=== PATIENT | male | born 1950 ===

== ENCOUNTER 2016-12-13 11:11 | Observation (INO) | payer MEDICARE ==
[2016-12-13 11:11] VITALS: BMI 28.3
[2016-12-13] MEDS ORDERED: Sodium Chloride 0.9% 500 ML IV STA (11:48)
--- NOTE | 2016-12-13 12:03 | ED PDOC ---
HPI: Chest Pain Time Seen by Provider: 12/13/16 11:25 Chief Complaint (Nursing): Chest Pain Chief Complaint (Provider): Chest pain History Per: Patient History/Exam Limitations: no limitations Onset/Duration Of Symptoms: Days (Today) Current Symptoms Are (Timing): Still Present Additional Complaint(s): Pt. was getting pre-op for colonoscopy today. He started get chest pain so sent to the ER. Pt. currently with mild left side pain. No numbness, tingles, weakness, headaches, dizziness, fever, cough. No dyspnea. Past Medical History Reviewed: Nursing Documentation, Vital Signs Vital Signs: Last Vital Signs Temp 98 F 12/13/16 11:13 Pulse 56 L 12/13/16 11:13 Resp 18 12/13/16 11:13 BP 150/84 12/13/16 11:13 Pulse Ox 97 12/13/16 12:49 - Medical History PMH: Diabetes, HTN, Hypercholesterolemia, Hypothyroidism Denies: Chronic Kidney Disease - Surgical History Surgical History: CABG, Endoscopy - Family History Family History: States: Unknown Family Hx - Living Arrangements Living Arrangements: With Family - Social History Current smoker - smoking cessation education provided: No Alcohol: None Drugs: Denies - Immunization History Hx Tetanus Toxoid Vaccination: No Hx Influenza Vaccination: No Hx Pneumococcal Vaccination: No - Home Medications Home Medications: Ambulatory Orders Medication Instructions Recorded Unobtainable 12/13/16 - Allergies Allergies/Adverse Reactions: Allergies Allergy/AdvReac Type Severity Reaction Status Date / Time No Known Allergies Allergy Verified 12/13/16 11:13 CLAIRE Risk Score for UA/NSTEMI - CLAIRE Risk Score Age > 64: YES 3 or more CAD Risk Factors: YES Known CAD (Stenosis greater than 50%): NO Aspirin use in past 7 days: YES Severe Angina: NO EKG ST changes greater than 0.5mm: NO Positive Cardiac Marker: NO CLAIRE Score: 3 Risk %: 13% Review of Systems ROS Statement: Except As Marked, All Systems Reviewed And Found Negative Cardiovascular: Positive for: Chest Pain Physical Exam - Reviewed Nursing Documentation Reviewed: Yes Vital Signs Reviewed: Yes - Physical Exam Appears: Positive for: Non-toxic, No Acute Distress Head Exam: Positive for: ATRAUMATIC, NORMAL INSPECTION, NORMOCEPHALIC Skin: Positive for: Normal Color, Warm, DRY Eye Exam: Positive for: EOMI, Normal appearance, PERRL ENT: Positive for: Normal ENT Inspection Neck: Positive for: Normal, Painless ROM Cardiovascular/Chest: Positive for: Regular Rate, Rhythm. Negative for: Chest Non Tender (mild left side), Edema Respiratory: Positive for: Normal Breath Sounds. Negative for: Decreased Breath Sounds, Accessory Muscle Use, Wheezing Gastrointestinal/Abdominal: Positive for: Normal Exam, Bowel Sounds, Soft. Negative for: Tenderness Back: Positive for: Normal Inspection. Negative for: L CVA Tenderness, R CVA Tenderness Extremity: Positive for: Normal ROM. Negative for: Tenderness, Pedal Edema, Calf Tenderness Neurologic/Psych: Positive for: Alert, Oriented - Laboratory Results Result Diagrams: 12/13/16 11:50 12/13/16 11:50 Interpretation Of Abn Labs: no acute - ECG ECG: Positive for: Interpreted By Me, Viewed By Me ECG Rhythm: Positive for: Sinus Rhythm, Nonspecific Changes Interpretation Of Abn EKG: similar to old O2 Sat by Pulse Oximetry: 97 Pulse Ox Interpretation: Normal - Radiology X-Ray: Read By Radiologist X-Ray Interpretation: No Acute Disease - Progress ED Course And Treament: 1411: Stable. AAOx3. Will need admit for further eval. Spoke with hospitalist who will admit Dr. Stewart pt. Spoke with Dr. Felton, will consult. Well known to him. Pt. is pain free currently. Disposition - Clinical Impression Clinical Impression: Chest pain - Patient ED Disposition Is Patient to be Admitted: Yes Counseled Patient/Family Regarding: Studies Performed, Diagnosis - Disposition Disposition Time: 14:18 Condition: FAIR - Pt Status Changed To: Hospital Disposition Of: Observation - POA Present On Arrival: None Core Measure Indicators: Chest Pain
--- NOTE | 2016-12-13 12:33 | RAD ---
HISTORY: chest pain COMPARISON: Portable chest 09/02/2013. FINDINGS: LUNGS: No active pulmonary disease. PLEURA: No significant pleural effusion identified, no pneumothorax apparent. CARDIOVASCULAR: Cardiomegaly is stable. No pulmonary vascular derangement. Trachea remains midline. OSSEOUS STRUCTURES: Median sternotomy again identified. Prior right chest port now removed. VISUALIZED UPPER ABDOMEN: Normal. OTHER FINDINGS: None. IMPRESSION: Stable cardiomegaly. No infiltrate pleural effusion or pneumothorax. No pulmonary vascular derangement identified. Prior right chest port now removed.
[2016-12-13 12:55] LABS: BASO % 0.5 % (0.0-2.0); EOS # 0.2 K/uL (0.0-0.7); EOS % 2.9 % (0.0-4.0); HEMATOCRIT 47.1 % (35.0-51.0); LYMPH # 1.5 K/uL (1.0-4.3); LYMPH % 27.1 % (20.0-40.0); MEAN CORPUSCULAR HEMOGLOBIN 30.1 pg (27.0-31.0); MEAN CORPUSCULAR HGB CONC 32.3 g/dL (33.0-37.0); MONO # 0.6 K/uL (0.0-0.8); MONO % 11.5 % (0.0-10.0); NEUT # 3.3 K/uL (1.8-7.0); NRBC % 0.1 % (0.0-0.0); RED CELL DISTRIBUTION WIDTH 14.4 % (11.5-14.5); WHITE BLOOD COUNT 5.6 K/uL (4.8-10.8)
[2016-12-13 13:06] LABS: ALB/GLOB RATIO 1.4 (1.0-2.1); ALKALINE PHOSPHATASE 67 U/L (38-126); ALT/SGPT 42 U/L (21-72); AST/SGOT 28 U/L (17-59); BILIRUBIN,TOTAL 1.1 mg/dl (0.2-1.3); BLOOD UREA NITROGEN 22 mg/dl (9-20); CALCIUM 9.7 mg/dL (8.4-10.2); CARBON DIOXIDE 30 mmol/L (22-30); CHLORIDE 104 mmol/L (98-107); GFR AFRICAN-AMERICAN > 60; GLUCOSE,RANDOM 139 mg/dL (75-110); SODIUM 145 mmol/l (132-148); TOTAL PROTEIN 7.5 G/DL (6.3-8.2)
[2016-12-13 13:18] LABS: PARTIAL THROMBOPLASTIN TIME 31.6 Seconds (25.6-37.1)
[2016-12-13] MEDS ORDERED: LINACLOTIDE 72 MG PO PRN (15:53)
[2016-12-13] MEDS ORDERED: Insulin Lispro (humaLOG) 100 Units/ml Inj SC SCH (16:30)
--- NOTE | 2016-12-13 17:14 | CP.PCM.HP ---
History of Present Illness - History of Present Illness History of Present Illness: CC: chest pain Code status: Full code Surrogate decision maker: Alvarez Keyes, brother This is a 66-year-old male with a past medical history significant for coronary artery disease status post quadruple CABG, type 2 diabetes mellitus, hypertension, hypercholesterolemia, hypothyroidism, presents to the emergency department with the complaint of chest pain. The patient relates that he was to have a colonoscopy today when he began having chest pain. He says that the pain is mild to moderate, substernal, nonradiating, feels like a sharp pain, nonreproducible, not associated with exertion. He says that the pain improved after eructation. In the ED, the patient's vitals were stable and he was chest pain free. EKG shows sinus bradycardia with no acute changes. CXR shows no acute cardiopulmonary disease. Labwork, including troponin, was benign. The patient is to be placed on observation overnight on telemetry with cardiology consultation to evaluate for the possiblity of acute coronary syndome. Patient denies shortness of breath, fevers, chills, nausea, vomiting, diarrhea, headache. Rest of ROS as below. All of the patient's and/or family's questions were answered at the bedside. Present on Admission - Present on Admission Any Indicators Present on Admission: No Review of Systems - Constitutional Constitutional: absent: Anorexia, Chills, Frequent Falls, Headache - EENT Eyes: absent: Diplopia, Discharge, Dry Eye, Exophthalmos, Itchy Eyes, Loss of Peripheral Vision, Requires Corrective Lenses, Sees Flashes Ears: absent: Decreased Hearing, Ear Discharge, Ear Pain, Tinnitus, Disequilibrium, Dizziness - Cardiovascular Cardiovascular: Chest Pain. absent: Dyspnea on Exertion, Edema, Irregular Heart Rhythm, Leg Edema, Palpitations, Rapid Heart Rate - Respiratory Respiratory: absent: Cough, Dyspnea on Exertion, Wheezing, Snoring, Pain on Inspiration - Gastrointestinal Gastrointestinal: absent: Change in Stool Character, Cramping, Dyspepsia, Fecal Incontinence, Hematochezia - Musculoskeletal Musculoskeletal: absent: Arthralgias, Deformity, Joint Swelling, Limited Range of Motion, Loss of Height, Muscle Weakness, Myalgias, Neck Pain - Integumentary Integumentary: absent: Change in Hair, Changing Lesions, Dry Skin, Hirsutism, Lesions, New Lesions, Skin Pain - Neurological Neurological: absent: Abnormal Gait, Disequilibrium, Dizziness, Numbness, Frequent Falls, Headaches, Paresthesias, Radicular Pain - Psychiatric Psychiatric: absent: Abnormal Sleep Pattern, Behavioral Changes, Change in Appetite, Confusion, Depression, Difficulty Concentrating - Endocrine Endocrine: absent: Change in Libido, Deepening of Voice, Excessive Sweating, Heat Intolorance, Increase in Ring/Shoe/Hat Size - Hematologic/Lymphatic Hematologic: absent: Easy Bleeding, Easy Bruising, Lymphadenopathy Past Patient History - Past Medical History & Family History Past Medical History?: Yes - Past Social History Smoking Status: Never Smoked - CARDIAC Hx Cardiac Disorders: Yes - PULMONARY Hx Respiratory Disorders: No - NEUROLOGICAL Hx Neurological Disorder: No - HEENT Hx HEENT Problems: No - RENAL Hx Chronic Kidney Disease: No - ENDOCRINE/METABOLIC Hx Endocrine Disorders: Yes - HEMATOLOGICAL/ONCOLOGICAL Hx Blood Disorders: Yes Hx Cancer: Yes (COLON CA WITH CHEMO) - INTEGUMENTARY Hx Dermatological Problems: No - MUSCULOSKELETAL/RHEUMATOLOGICAL Hx Musculoskeletal Disorders: No Hx Falls: No - GASTROINTESTINAL Hx Gastrointestinal Disorders: No - GENITOURINARY/GYNECOLOGICAL Hx Genitourinary Disorders: No - PSYCHIATRIC Hx Psychophysiologic Disorder: No Hx Emotional Abuse: No Hx Physical Abuse: No Hx Substance Use: No - SURGICAL HISTORY Hx Coronary Artery Bypass Graft: Yes - ANESTHESIA Hx Anesthesia: Yes Hx Anesthesia Reactions: No Hx Malignant Hyperthermia: No Meds Allergies/Adverse Reactions: Allergies Allergy/AdvReac Type Severity Reaction Status Date / Time No Known Allergies Allergy Verified 12/13/16 11:13 Physical Exam - Additional Findings Additional findings: EXAM: Vitals stable and reviewed GEN: WDWN, alert, cooperative HEENT: NCAT, PERRL, EOMI Neck: supple, no lymphadenopathy CARDIO: +S1S2, bradycardia, regular rhythm, NO M/R/G LUNG: CTAB, NO W/R/R ABD: soft, NT, ND, no masses, no HSM EXT: no edema, pedal pulses Neuro: AAOx3, Strength equal, bilateral UE/LE Psych: normal mood, normal affect Results - Vital Signs Recent Vital Signs: Last Vital Signs Temp 97.5 F L 12/13/16 16:04 Pulse 53 L 12/13/16 16:59 Resp 18 12/13/16 16:12 BP 126/70 12/13/16 16:59 Pulse Ox 97 12/13/16 16:04 - Labs Result Diagrams: 12/13/16 11:50 12/13/16 11:50 - Impressions Impression: EKG shows sinus bradycardia at 57 bpm, nonspecific T wave changes in lateral leads, left axis deviation. No acute ST changes. Assessment & Plan - Assessment and Plan (Free Text) Plan: - CLAIRE Risk Score Age > 64: YES 3 or more CAD Risk Factors: YES Known CAD (Stenosis greater than 50%): NO Aspirin use in past 7 days: YES Severe Angina: NO EKG ST changes greater than 0.5mm: NO Positive Cardiac Marker: NO CLAIRE Score: 3 Risk %: 13% Chest pain, with hx of significant cardiac history. ddx: ACS, GERD symptoms, esophageal spasm, anxiety, - Place on telemetry observation - Cardiology consult with Dr. lindsey appreciated - Cycle troponins, first negative - EKG in AM and with chest pain - ASA 81 mg po daily, 325 mg given in ED - Continue Coreg 3.125 mg po q 12 hours - Nitrostat PRN for chest pain Hypertension - Continue Lisinopril - Coreg as above Type 2 DM - Restart home insulin regimen - Accuchecks Hypothyroidism - continue synthroid DVT prophylaxis - Lovenox 40 mg SC daily - Date & Time Date: 12/13/16 Time: 17:30
[2016-12-13] MEDS ORDERED: Insulin Detemir 100 Units/ml Inj SC SCH (22:00)
[2016-12-13] MEDS: Insulin Regular 100 units/ml SC SCH (22:29)
[2016-12-14 00:06] VITALS: RESP 18
[2016-12-14] MEDS: Insulin Regular 100 units/ml SC SCH (06:15)
[2016-12-14] MEDS ORDERED: Levothyroxine 150 MCG TAB PO SCH (06:30)
--- NOTE | 2016-12-14 07:59 | CARD ---
APPROVED REPORT EKG Measurement Heart [id number] IA [id number] [id number] <Conclusion> Sinus bradycardia Left axis deviation Nonspecific intraventricular conduction delay ST & T wave abnormality, consider lateral ischemia Abnormal ECG
[2016-12-14 08:12] VITALS: BP 124/75; TEMP 97.8; O2SAT 95
--- NOTE | 2016-12-14 08:42 | CARD ---
APPROVED REPORT EKG Measurement Heart [id number] NM [id number] [id number] <Conclusion> Sinus bradycardia Left axis deviation T wave abnormality, consider lateral ischemia Abnormal ECG
[2016-12-14] MEDS ORDERED: Pravastatin Sodium 40 MG TAB PO SCH (09:00)
[2016-12-14] MEDS ORDERED: Enoxaparin 40 mg Syringe SC SCH (09:00)
[2016-12-14 10:00] VITALS: PULSE 61
--- NOTE | 2016-12-14 10:44 | CP.PCM.CON ---
History of Present Illness - History of Present Illness History of Present Illness: THE PATIENT IS A 66 YEAR OLD MALE WHO WAS ADMITTED TO [facility] YESTERDAY UNDER OBSERVATION FOR CHEST PAIN. HE HAS A HISTORY OF CAD WITH AN OLD VA AND CABGS, HYPERTENSION, HYPERLIPIDEMIA, COLON CA SURGERY, DM, AND HYPOTHYROIDISM. HE WAS SCHEDULED FOR A COLONOSCOPY YESTERDAY AND WAS RECEIVING A COLONOSCOPY PREPARATION AND HAD CHEST PAIN AND THE COLONOSCOPY WAS CANCELLED AND THE PATIENT WAS SENT THE ER AND ADMITTED. HE DESCRIBED THE CHEST PAIN "GAS" PAIN THAT HE BELIEVES WAS FROM HIS GI PREP. THE PAIN WAS IN THE CENTER OF THE CHEST AND THE LEFT SIDE OF THE CHEST AND LASTED FOR ABOUT 30 MINUTES IN TOTAL AND WENT AWAY WHEN HE PASSED FLATUS. HE HAS BEEN CHEST PAIN FREE SINCE. HE DENIES PALPITATIONS OR SOB. Past Patient History - Past Medical History & Family History Past Medical History?: Yes - Past Social History Smoking Status: Never Smoked - CARDIAC Hx Cardiac Disorders: Yes - PULMONARY Hx Respiratory Disorders: No - NEUROLOGICAL Hx Neurological Disorder: No - HEENT Hx HEENT Problems: No - RENAL Hx Chronic Kidney Disease: No - ENDOCRINE/METABOLIC Hx Endocrine Disorders: Yes - HEMATOLOGICAL/ONCOLOGICAL Hx Blood Disorders: Yes Hx Cancer: Yes (COLON CA WITH CHEMO) - INTEGUMENTARY Hx Dermatological Problems: No - MUSCULOSKELETAL/RHEUMATOLOGICAL Hx Musculoskeletal Disorders: No Hx Falls: No - GASTROINTESTINAL Hx Gastrointestinal Disorders: No - GENITOURINARY/GYNECOLOGICAL Hx Genitourinary Disorders: No - PSYCHIATRIC Hx Psychophysiologic Disorder: No Hx Emotional Abuse: No Hx Physical Abuse: No Hx Substance Use: No - SURGICAL HISTORY Hx Coronary Artery Bypass Graft: Yes - ANESTHESIA Hx Anesthesia: Yes Hx Anesthesia Reactions: No Hx Malignant Hyperthermia: No Meds Allergies/Adverse Reactions: Allergies Allergy/AdvReac Type Severity Reaction Status Date / Time No Known Allergies Allergy Verified 12/13/16 11:13 - Medications Medications: Current Medications Alprazolam (Xanax) 0.5 mg PO HS [facility] Last Admin: 12/13/16 22:26 Dose: 0.5 mg Aspirin (Ecotrin) 81 mg PO DAILY [facility] Last Admin: 12/14/16 08:43 Dose: 81 mg Carvedilol (Coreg) 3.125 mg PO Q12H [facility] Last Admin: 12/14/16 05:30 Dose: Not Given Enoxaparin Sodium (Lovenox) 40 mg SC DAILY [facility] PRN Reason: Protocol Last Admin: 12/14/16 08:43 Dose: 40 mg Home Med (Icosapent Ethyl [Vascepa]) 2 gm PO BID [facility] Home Med (Linaclotide [Linzess]) 72 mg PO DAILY PRN PRN Reason: Constipation Insulin Detemir (Levemir) 30 units SC [facility] Last Admin: 12/13/16 22:27 Dose: 30 units Insulin Human Regular (Humulin R) 0 units SC ACCU-CHECK [facility] PRN Reason: Protocol Last Admin: 12/14/16 06:15 Dose: Not Given Levothyroxine Sodium (Synthroid) 150 mcg PO DAILY@0630 [facility] Last Admin: 12/14/16 06:14 Dose: 150 mcg Lisinopril (Zestril) 5 mg PO DAILY [facility] Last Admin: 12/14/16 08:43 Dose: 5 mg Nitroglycerin (Nitrostat Sl Tab) 0.4 mg SL Q5M PRN PRN Reason: Pain, moderate (4-7) Pravastatin Sodium (Pravachol) 40 mg PO DAILY [facility] Last Admin: 12/14/16 08:43 Dose: 40 mg Physical Exam - Respiratory Exam Respiratory Exam: Clear to Auscultation Bilateral - Cardiovascular Exam Cardiovascular Exam: REGULAR RHYTHM, +S1, +S2 - Extremities Exam Extremities exam: Positive for: normal inspection - Additional Findings Additional findings: EKG SINUS RHYTHM, T WAVE INVERSIONS IN LIMB LEADS I AND L AND CHEST LEADS V4 TO V6(PATIENT'S BASELINE) TROPONINS NEGATIVE X 3 PHARMACOLOGICAL STRESS TEST DONE WITHIN LAST YEAR WAS NEGATIVE Results - Vital Signs Recent Vital Signs: Last Vital Signs Temp 97.8 F 12/14/16 08:12 Pulse 61 12/14/16 09:00 Resp 18 12/14/16 08:12 BP 124/75 12/14/16 08:43 Pulse Ox 95 12/14/16 08:12 - Labs Result Diagrams: 12/13/16 11:50 12/13/16 11:50 Labs: Laboratory Results - last 24 hr 12/13/16 12/13/16 12/13/16 15:56 18:43 21:19 POC Glucose (mg/dL) 165 H 160 H Troponin I < 0.0120 12/14/16 12/14/16 05:40 05:45 POC Glucose (mg/dL) 117 H Troponin I < 0.0120 Assessment & Plan - Assessment and Plan (Free Text) Assessment: CHEST PAIN-PATIENT IS CHEST PAIN FREE NOW AND THE EKG IS HIS BASELINE AND THE TROPONIN WAS NEGATIVE X 3 CAD WITH CABGS HYPERTENSION HYPERLIPIDEMIA DM COLON CA WITH SURGERY Plan: THE PATIENT WAS ADMITTED TO 4N ON TELEMETRY AND TREATED WITH O2, ASPIRIN, LOVENOX, NITRATES, CARVEDILOL, LISINOPROL AND PRAVACHOL THE PATIENT CAN BE DISCHARGED FROM THE CARDIAC [facility] I WILL SEE IN THE OFFICE IN 1-2 WEEKS
--- NOTE | 2016-12-14 11:44 | CP.PCM.DIS ---
Provider - Provider Date of Admission: 12/13/16 14:16 Attending physician: Bruce Barakat DO Primary care physician: Dr Stewart Consults: Cardio: Dr Lindsey Time Spent in preparation of Discharge (in minutes): 25 Diagnosis - Discharge Diagnosis (1) Chest pain Status: Acute (2) CAD (coronary artery disease), [place] coronary artery Status: Chronic (3) HTN (hypertension) Status: Chronic (4) DM type 2 (diabetes mellitus, type 2) Status: Chronic (5) Hypothyroidism Status: Chronic Hospital Course - Lab Results Lab Results: Most Recent Lab Values WBC 5.6 K/uL (4.8-10.8) 12/13/16 11:50 RBC 5.07 Mil/uL (4.40-5.90) 12/13/16 11:50 Hgb 15.2 g/dL (12.0-18.0) 12/13/16 11:50 Hct 47.1 % (35.0-51.0) 12/13/16 11:50 MCV 93.0 fl (80.0-94.0) 12/13/16 11:50 MCH 30.1 pg (27.0-31.0) 12/13/16 11:50 MCHC 32.3 g/dL (33.0-37.0) L 12/13/16 11:50 RDW 14.4 % (11.5-14.5) 12/13/16 11:50 Plt Count 195 K/uL (130-400) 12/13/16 11:50 MPV 9.0 fl (7.2-11.7) 12/13/16 11:50 Neut % (Auto) 58.0 % (50.0-75.0) 12/13/16 11:50 Lymph % (Auto) 27.1 % (20.0-40.0) 12/13/16 11:50 [place] % (Auto) 11.5 % (0.0-10.0) H 12/13/16 11:50 Eos % (Auto) 2.9 % (0.0-4.0) 12/13/16 11:50 Baso % (Auto) 0.5 % (0.0-2.0) 12/13/16 11:50 Neut # 3.3 K/uL (1.8-7.0) 12/13/16 11:50 Lymph # 1.5 K/uL (1.0-4.3) 12/13/16 11:50 [place] # 0.6 K/uL (0.0-0.8) 12/13/16 11:50 Eos # 0.2 K/uL (0.0-0.7) 12/13/16 11:50 Baso # 0.0 K/uL (0.0-0.2) 12/13/16 11:50 PT 11.4 Seconds (9.8-13.1) 12/13/16 13:00 INR 1.1 (0.9-1.2) 12/13/16 13:00 APTT 31.6 Seconds (25.6-37.1) 12/13/16 13:00 Sodium 145 mmol/l (132-148) 12/13/16 11:50 Potassium 5.0 MMOL/L (3.6-5.0) 12/13/16 11:50 Chloride 104 mmol/L (98-107) 12/13/16 11:50 Carbon Dioxide 30 mmol/L (22-30) 12/13/16 11:50 Anion Gap 16 (10-20) 12/13/16 11:50 BUN 22 mg/dl (9-20) H 12/13/16 11:50 Creatinine 1.1 mg/dL (0.8-1.5) 12/13/16 11:50 Est GFR ( Amer) > 60 12/13/16 11:50 Est GFR (Non-Af Amer) > 60 12/13/16 11:50 POC Glucose (mg/dL) 117 mg/dL (65-110) H 12/14/16 05:40 Random Glucose 139 mg/dL (75-110) H 12/13/16 11:50 Calcium 9.7 mg/dL (8.4-10.2) 12/13/16 11:50 Total Bilirubin 1.1 mg/dl (0.2-1.3) 12/13/16 11:50 AST 28 U/L (17-59) 12/13/16 11:50 ALT 42 U/L (21-72) 12/13/16 11:50 Alkaline Phosphatase 67 U/L (38-126) 12/13/16 11:50 Troponin I < 0.0120 ng/mL (0.00-0.120) 12/14/16 05:45 Total Protein 7.5 G/DL (6.3-8.2) 12/13/16 11:50 Albumin 4.4 g/dL (3.5-5.0) 12/13/16 11:50 Globulin 3.2 gm/dL (2.2-3.9) 12/13/16 11:50 Albumin/Globulin Ratio 1.4 (1.0-2.1) 12/13/16 11:50 - Hospital Course Hospital Course: 66 y/o gent with hx of CAD s/p CABG, hx of HTN, DM, Hypothyroidism, came bec of chest pain. Chest Pain ACS ruled out , CP prob GI related ( felt discomfort after he took bowel prep) History of CAD , CABG - Placed on telemetry observation -Troponins x 3 negative - no acute EKG change - Cardiology consulted: Dr. lindsey , cleared pt for d/c -Pt had Myocardial Stress Test done 10 mos ago w/c was negative - ASA 81 mg po daily - Continue Coreg 3.125 mg po q 12 hours - Nitrostat PRN for chest pain Hypertension - Continue Lisinopril - Coreg as above Type 2 DM - Restart home insulin regimen - Accuchecks Hypothyroidism - continue synthroid DVT prophylaxis - Lovenox 40 mg SC daily Discharge Exam - Head Exam Head Exam: ATRAUMATIC, NORMAL INSPECTION, NORMOCEPHALIC - Eye Exam Eye Exam: EOMI, Normal appearance Pupil Exam: NORMAL ACCOMODATION - ENT Exam ENT Exam: Mucous Membranes Moist, Normal External Ear Exam - Neck Exam Neck exam: Full Rom - Respiratory Exam Respiratory Exam: NORMAL BREATHING PATTERN. absent: Respiratory Distress - Cardiovascular Exam Cardiovascular Exam: REGULAR RHYTHM, +S1, +S2 - GI/Abdominal Exam GI & Abdominal Exam: Normal Bowel Sounds, Soft. absent: Tenderness - Extremities Exam Extremities exam: full ROM, normal capillary refill, pedal pulses present Additional comments: no calf tenderness - Back Exam Back exam: FULL ROM. absent: CVA tenderness (L), CVA tenderness (R) - Neurological Exam Neurological exam: Alert, CN II-XII Intact, Oriented x3, Reflexes Normal - Psychiatric Exam Psychiatric exam: Normal Affect, Normal Mood - Skin Skin Exam: Dry, Normal Color, Warm Discharge Plan - Follow Up Plan Condition: GOOD Disposition: HOME/ ROUTINE Instructions: Chest Pain (GEN) Additional Instructions: ff up with Dr Pat clark appt with Dr Lindsey in [address] Merritt clark Referrals: Merritt WORRELL,MD [place] [Medical Doctor] - Caio Lindsey MD [Staff Provider] - Cory Stewart MD [Family Provider] -
== END 2016-12-14 12:30 | disposition home or self-care (01) ==
LOC: H.ER 11:11 → H.ERHOLD 14:16 → H.TEL 15:46
PROVIDERS: ADMIT Internal Medicine; ATTEND Internal Medicine
DX: R07.89 Other chest pain (principal); Z85.038 Personal history of other malignant neoplasm of large intestine; E03.9 Hypothyroidism, unspecified; E11.9 Type 2 diabetes mellitus without complications; E78.00 Pure hypercholesterolemia, unspecified; E78.5 Hyperlipidemia, unspecified; I10 Essential (primary) hypertension; I25.10 Atherosclerotic heart disease of native coronary artery without angina pectoris; I25.2 Old myocardial infarction; Z79.4 Long term (current) use of insulin; Z79.82 Long term (current) use of aspirin; Z95.1 Presence of aortocoronary bypass graft; R00.1 Bradycardia, unspecified
CPT/HCPCS: 36415; 71010; 80053; 82948; 84484; 85025; 85610; 85730; 93005; 99285; G0378; J1650; J7040

== ENCOUNTER 2017-01-17 07:04 | Day surgery (SDC) | payer MEDICARE ==
[2017-01-17 07:37] VITALS: BMI 28.1
[2017-01-17] MEDS ORDERED: Lactated Ringer's 500 ML IV ONE (07:38)
[2017-01-17] MEDS ORDERED: Midazolam 2 MG/2 ML VIAL ONE (08:32)
[2017-01-17] MEDS ORDERED: Etomidate 20 mg/10ml Inj IV ONE (08:32)
[2017-01-17] MEDS ORDERED: Propofol 10 mg/ml Inj (20 ML) ONE (08:32)
[2017-01-17] MEDS ORDERED: Lidocaine 2% MPF (5 ml) Inj ONE (08:33)
[2017-01-17 10:03] VITALS: BP 119/59; PULSE 55; RESP 14; TEMP 96.8; O2SAT 100
== END 2017-01-17 10:35 | disposition home or self-care (01) ==
LOC: H.ENDO 07:04
PROVIDERS: ATTEND Internal Medicine Gastroenterology
DX: Z12.11 Encounter for screening for malignant neoplasm of colon (principal); K64.8 Other hemorrhoids; Z98.0 Intestinal bypass and anastomosis status; Z85.038 Personal history of other malignant neoplasm of large intestine; Z95.1 Presence of aortocoronary bypass graft; E10.9 Type 1 diabetes mellitus without complications; E78.5 Hyperlipidemia, unspecified; E03.9 Hypothyroidism, unspecified; I10 Essential (primary) hypertension
CPT/HCPCS: 45378; 82948; J2250; J2704; J7120